=== PATIENT | male | born 1930 | race Asian ===

== ENCOUNTER → 2019-01-17 | Outpatient (CLI) | payer MEDICARE, MEDICAID ==
[~2019-01-17] MED LIST: AMLO-511 PO; ASPI-825 PO; ATOR20TA86 PO; CALC-590 PO; CLON-570 PO; LORA10TA7 PO; MULT1TAB70 PO; PIOG15TA6 PO
== END | disposition home or self-care (01) ==
LOC: RADPV 09:51
PROVIDERS: ATTEND Legal Medicine
DX: I73.9 Peripheral vascular disease, unspecified (principal); I70.0 Atherosclerosis of aorta; M85.88 Other specified disorders of bone density and structure, other site; J98.4 Other disorders of lung
CPT/HCPCS: 93925; 93970

== ENCOUNTER → 2019-03-12 | Outpatient (CLI) | payer MEDICARE, MEDICAID | END | disposition home or self-care (01) | LOC: RADPV 07:52 | PROVIDERS: ATTEND Legal Medicine | DX: M19.042 Primary osteoarthritis, left hand (principal); M81.0 Age-related osteoporosis without current pathological fracture ==

== ENCOUNTER → 2020-03-12 | Outpatient (CLI) | payer MEDICARE, MEDICAID ==
[~2020-03-12] MED LIST changes: -AMLO-511 PO; +AMLO5TAB9 PO; -CLON-570 PO; +CLON0.1T83 PO
== END | disposition home or self-care (01) ==
LOC: RADPV 08:17
PROVIDERS: ATTEND Legal Medicine
DX: I82.401 Acute embolism and thrombosis of unspecified deep veins of right lower extremity (principal); L97.219 Non-pressure chronic ulcer of right calf with unspecified severity; L97.519 Non-pressure chronic ulcer of other part of right foot with unspecified severity
CPT/HCPCS: 93926; 93971

== ENCOUNTER → 2020-06-15 | Outpatient (CLI) | payer MEDICARE, MEDICAID ==
[~2020-06-15] MED LIST changes: +AMLO-257 PO; -AMLO5TAB9 PO
== END | disposition home or self-care (01) ==
LOC: RADPV 10:52
PROVIDERS: ATTEND Legal Medicine
DX: M16.0 Bilateral primary osteoarthritis of hip (principal); M19.012 Primary osteoarthritis, left shoulder; M17.12 Unilateral primary osteoarthritis, left knee; M51.37 Other intervertebral disc degeneration, lumbosacral region; M47.816 Spondylosis without myelopathy or radiculopathy, lumbar region; M25.462 Effusion, left knee; M85.812 Other specified disorders of bone density and structure, left shoulder; M25.78 Osteophyte, vertebrae; M41.86 Other forms of scoliosis, lumbar region; I70.0 Atherosclerosis of aorta
CPT/HCPCS: 72100; 73521; 73030-TC; 73562-TC

== ENCOUNTER 2020-08-18 16:37 | Emergency (ER) | payer MEDICARE, MEDICAID ==
[~2020-08-18] VITALS: Ht 177.8 cm; Wt 52.3 kg
[2020-08-18] MEDS ORDERED: MECL25TA39 PO (16:51)
[2020-08-18] MEDS ORDERED: MULT1CAP32 PO (16:51)
[2020-08-18] MEDS ORDERED: ALPR0.255 PO (16:51)
[2020-08-18] MEDS ORDERED: PANT-31 PO (16:51)
[2020-08-18] MEDS ORDERED: DOCU-350 PO (16:51)
[2020-08-18] MEDS ORDERED: PIOG30TA10 PO (16:51)
[2020-08-18] MEDS ORDERED: BENA5TAB26 PO (16:51)
[2020-08-18] MEDS ORDERED: OMEG-50 PO (16:51)
[2020-08-18 20:39] VITALS: BP 132/75
== END 2020-08-18 20:41 | disposition home or self-care (01) ==
LOC: EMS 16:37
DX: S20.219A Contusion of unspecified front wall of thorax, initial encounter (principal); S40.012A Contusion of left shoulder, initial encounter; E11.9 Type 2 diabetes mellitus without complications; I10 Essential (primary) hypertension; D64.9 Anemia, unspecified; W19.XXXA Unspecified fall, initial encounter; Y93.89 Activity, other specified; Y92.89 Other specified places as the place of occurrence of the external cause; Y99.8 Other external cause status
CPT/HCPCS: 71111; 73503

== ENCOUNTER → 2020-08-20 | Outpatient (CLI) | payer MEDICARE, MEDICAID ==
[~2020-08-20] MED LIST changes: +ALPR0.255 PO; +BENA5TAB26 PO; +DOCU-350 PO; +IOVERSOL 350 MG/ML 100 ML VIAL ONE; +MECL25TA39 PO; +MULT1CAP32 PO; +OMEG-50 PO; +PANT-31 PO; +PIOG30TA10 PO; +SODIUM CHLORIDE 0.9% 100 ML ONE
== END | disposition home or self-care (01) ==
LOC: RADMN 09:12
PROVIDERS: ATTEND Legal Medicine
DX: R91.1 Solitary pulmonary nodule (principal); R91.8 Other nonspecific abnormal finding of lung field; J90 Pleural effusion, not elsewhere classified; J98.4 Other disorders of lung
CPT/HCPCS: 71260; J7050; Q9967